=== PATIENT | male | born 1995 | race Caucasian/White ===

== ENCOUNTER 2017-05-31 22:57 | Emergency (ER) | payer OTHER ==
[~2017-05-31] VITALS: Ht 170.2 cm; Wt 79.0 kg
[2017-05-31 23:01] VITALS: Ht 170.2 cm; Wt 79.0 kg
[2017-06-01] MEDS ORDERED: AMO500 PO (01:39)
[2017-06-01] MEDS ORDERED: IBUP-1542 PO (01:39)
[2017-06-01] MEDS ORDERED: D-ME473S18 PO (01:40)
--- NOTE | 2017-06-01 03:42 | ERD ---
ER Documentation Chief Complaint Date/Time DATE: 06/01/17 TIME: 03:38 Chief Complaint left ear pain HPI This is a 21-year-old male presents to the ER with left ear pain that started earlier today. Ear pain is sharp and constant. Patient recently had a cough and a cold. He denies any fevers. He does admit to some mild hearing loss, he denies any tinnitus. He denies any headaches. He denies any chest pain or shortness of breath. ROS 12 point review of systems was done, all negative except per HPI. Medications Home Meds Active Scripts Dextromethorphan Hb-Promethazine Hcl (Promethazine DM Syrup) 473 Ml Syrup, 10 ML PO Q6H Y for COUGH, #4 OZ Prov:ZEINAB ALVAREZ 06/01/17 Amoxicillin* (Amoxicillin*) 500 Mg Cap, 500 MG PO TID for 10 Days, CAP Prov:ZEINAB ALVAREZ 06/01/17 Ibuprofen* (Motrin*) 600 Mg Tab, 600 MG PO Q6, #30 TAB Prov:KIMZEINAB GARDNER 06/01/17 Allergies Allergies: Coded Allergies: No Known Allergy (Unverified , 05/31/17) PMhx/Soc Medical and Surgical Hx: pt denies Medical Hx, pt denies Surgical Hx History of Surgery: No Anesthesia Reaction: No Hx Neurological Disorder: No Hx Respiratory Disorders: No Hx Cardiac Disorders: No Hx Psychiatric Problems: No Hx Miscellaneous Medical Probl: No Hx Alcohol Use: No Hx Substance Use: No Hx Tobacco Use: No Smoking Status: Never smoker Physical Exam Vitals Vital Signs Date Time Temp Pulse Resp B/P Pulse Ox O2 Delivery O2 Flow Rate FiO2 05/31/17 23:01 98.5 86 20 143/94 100 Physical Exam GENERAL: The patient is well-developed, well-nourished, in no acute distress. NECK: Cervical spine is non tender with no step off. Supple, no nuchal rigidity HEENT: Atraumatic. Pupils equal, round and reactive to light. Extraocular muscles are grossly intact. Conjunctivae pink, no discharge. Left erythematous tympanic membrane, no TM perforation, no TM bulging, no mastoid tenderness. No discharge from the ear canal.. Tonsilar erythema with no exudates or uvular deviation. Clear rhinorrhea. RESPIRATORY: Clear to auscultation bilaterally. There are no rales, wheezes or rhonchi. HEART: Regular rate and rhythm. No murmurs, clicks, rubs or gallops. EXTREMITIES: No clubbing or cyanosis. Full range of motion. Grossly neurovascularly intact. NEUROLOGIC: Alert and oriented. Cranial nerves II through XII are intact. SKIN: There is no rash. The skin is warm and dry. Procedures/MDM Differential diagnosis includes but is not limited to; otitis media, external otitis, ruptured TM, mastoiditis, serous otitis media. This is a 21-year-old male presents to the ER with ear pain, he does have otitis media. He will be sent home with amoxicillin for his ear infection, but promethazine for cough and ibuprofen for pain. Suspicion for mastoiditis or serous otitis media is low. Patient is afebrile and extremely well-appearing suspicion for sepsis is low. Patient needs to follow-up with his primary care doctor within 1-2 days return to ER sooner if symptoms worsen. My medical decision making shared with the patient he understands and agrees with plan. Departure Diagnosis: Primary Impression: Otitis media Condition: Stable Patient Instructions: Otitis Media, Abx Tx (Adult) Additional Instructions: Call your primary care doctor TOMORROW for an appointment during the next 1-2 days.See the doctor sooner or return here if your condition worsens before your appointment time. ZEINAB ALVAREZ Jun 01, 2017 03:42
== END 2017-06-01 03:09 | disposition home or self-care (01) ==
LOC: FTE 22:57
DX: H66.92 Otitis media, unspecified, left ear (principal)
CPT/HCPCS: 99284

== ENCOUNTER 2017-07-07 00:37 | Emergency (ER) | payer OTHER ==
[~2017-07-07] VITALS: Ht 167.6 cm; Wt 92.0 kg
[~2017-07-07 00:37] MED LIST: AMOX500C2 PO; D-ME473S18 PO; IBUP-1542 PO
[2017-07-07 00:39] VITALS: Ht 167.6 cm; Wt 92.0 kg
[2017-07-07] MEDS ORDERED: CEPH-443 PO (01:08)
[2017-07-07] MEDS ORDERED: POLY10DR RIGHT EYE (01:08)
[2017-07-07 01:15] VITALS: BP 138/86; RESP 20
--- NOTE | 2017-07-07 01:18 | ERD ---
ER Documentation Chief Complaint Date/Time DATE: 07/07/17 TIME: 01:16 Chief Complaint right eye redness x 2 days HPI 20-year-old male complains of right eye redness and yellow drainage for 2 days. He states that it is a little bit itchy, with achy pain, with swelling to the right lower eyelid. He denies wearing any corrective lenses or contact lenses. He denies any visual changes, diplopia, visual field deficits. ROS All systems reviewed and are negative except as per history of present illness. Medications Home Meds Active Scripts Polymyxin/Trimethoprim* (Polytrim* Eye Drops) 10 Ml Drops, 1 DROP RIGHT EYE QID for 7 Days, #1 EA Prov:ELIAS HAJI PA-C 07/07/17 Cephalexin* (Keflex*) 500 Mg Capsule, 500 MG PO QID for 7 Days, CAP Prov:ELIAS HAJI PA-C 07/07/17 Dextromethorphan Hb-Promethazine Hcl (Promethazine DM Syrup) 473 Ml Syrup, 10 ML PO Q6H Y for COUGH, #4 OZ Prov:ZEINAB ALVAREZ 06/01/17 Amoxicillin* (Amoxicillin*) 500 Mg Cap, 500 MG PO TID for 10 Days, CAP Prov:ZEINAB ALVAREZ 06/01/17 Ibuprofen* (Motrin*) 600 Mg Tab, 600 MG PO Q6, #30 TAB Prov:ZEINAB ALVAREZ 06/01/17 Allergies Allergies: Coded Allergies: No Known Allergy (Unverified , 05/31/17) PMhx/Soc Medical and Surgical Hx: pt denies Medical Hx History of Surgery: Yes (nasal surgery- cyst removal) Anesthesia Reaction: No Hx Neurological Disorder: No Hx Respiratory Disorders: No Hx Cardiac Disorders: No Hx Psychiatric Problems: No Hx Miscellaneous Medical Probl: No Hx Alcohol Use: No Hx Substance Use: No Hx Tobacco Use: No Smoking Status: Never smoker Physical Exam Vitals Vital Signs Date Time Temp Pulse Resp B/P Pulse Ox O2 Delivery O2 Flow Rate FiO2 07/07/17 00:39 96.9 94 20 138/86 98 Physical Exam General: Well-developed, well-nourished. The patient appears in no acute distress. HEENT: Head is normocephalic, atraumatic. No scleral icterus. Eye Exam: Visual [place]: Intact in all four quadrants bilaterally Lac ducts/glands: Swelling to the right lower eyelid. Lids w/ evertion: Normal, no foreign body Conj/[place]: Right eye is injected, there is yellow drainage from the medial canthus. Left eye is normal Anterior Chamber: Clear Neck: Supple. Nontender. Lungs: Clear to auscultation. Normal air movement. Heart: Regular rate and rhythm. S1 and S2 are normal. No murmurs, gallops, or rubs. Abdomen: Nondistended. Extremities: No clubbing or cyanosis. Moving extremities x 4. No weakness. Neurologic: Alert and oriented 3. No focal deficits. Normal speech and gait. Skin: Normal turgor. No rash or lesions. Procedures/MDM 20-year-old male comes in with conjunctivitis, there is some swelling to the lower lid intact on the right eye as well. There is no evidence of orbital cellulitis, uveitis, keratitis, acute angle-closure glaucoma, globe rupture. Patient will be started on Keflex, Polytrim is to recheck in 1-2 days. Departure Diagnosis: Primary Impression: Conjunctivitis Condition: Good Patient Instructions: Conjunctivitis, Bacterial ELIAS HAJI PA-C Jul 07, 2017 01:18
== END 2017-07-07 01:16 | disposition home or self-care (01) ==
LOC: FTE 00:37
DX: H10.9 Unspecified conjunctivitis (principal)
CPT/HCPCS: 99284